=== PATIENT | male | born 1975 | race Caucasian/White ===

== ENCOUNTER → 2020-05-05 11:39 | Outpatient (CLI) | payer BC, SELFPAY ==
--- NOTE | ~2020-05-05 | XR_ITS ---
XR shoulder RT min 2V DATE: 05/05/2020 12:06 INDICATION: Adhesive capsulitis of right shoulder. Right shoulder pain. TECHNIQUE: 4 views COMPARISON: None FINDINGS: No fracture or dislocation, periosteal reaction or bone destruction or abnormal soft tissue calcification of the right shoulder. IMPRESSION: Negative Reviewed, dictated and finalized at location A. IMPRESSION: Negative
== END ==
PROVIDERS: PCP Internal Medicine; Visit Provider Internal Medicine
DX: M75.00 Adhesive capsulitis of unspecified shoulder (principal)
CPT/HCPCS: 73030

== ENCOUNTER 2020-06-03 15:30 | Outpatient (RCR) | payer BC, SELFPAY ==
--- NOTE | 2020-05-05 13:33 | PTOPEVAL ---
Thank you for referring Salbador Michelle to [facility] Please review, sign, date and return this plan of care MARVA. Patient evaluated on 05/05/20 in OP PT. Patient to be seen in OP PT 2x week for 3 weeks. I agree with and certify that the following plan of care is medically necessary. Referring Physician Date Admitting Provider: Attending Provider: Diogo Díaz MD Referring Provider: *PT Outpatient Evaluation Start: 05/05/20 12:31 Freq: Status: Active Protocol: Document 05/05/20 12:31 [facility] (Rec: 05/05/20 13:16 [facility] [id number]) Therapy Assessment Status Assessment Status Assessment Status Evaluation Outpatient Past Medical History Past Medical History No Past Medical/Surgical History Patient/Family Denies Significant Past Medical/ Surgical History Source of Past Medical History Patient Evaluation Information Problem Diagnosis R shoulder pain Onset November 2019 Additional Evaluation Detail Pt experiencing limitations with chores, washing his back/ getting to his wallet, participation in recreational activities, social and work activities, and sleep disruptions 2-3 x/night. Subjective Information Patient reports insidious Query Text:As Reported By Patient/ onset of R shoulder pain in Family November 2019, reports limitations in abduction, flexion, internal rotation. Reports he went to [facility] a few weeks ago. Got x-ray today, has not been read. Pt is an advanced practice nurse. Denies parasthesias. Was taking high dose NSAIDS however currently only taking vyvance and PRN ibruprofen to sleep. Diagnostic Tests X-Rays For This Problem Yes Pain Assessment Timing of Pain Assessment Timing of Pain Assessment Assessment Pain Scale Pain Scale Used Numeric (1 - 10) Self Report Pain Assessment Right Reported Pain Level 3 Pain Description Aching Pain Frequency Continuous Pain Aggravating Factors Exercise/Activity,Lifting Pain Relief Interventions Used By Exercise,Heat,Ice,Medication Patient Additional Pain Comments Increased pain with movement Pain Score Pain Score 3: Self Report Upper Extremity Range of Motion Scapular
--- NOTE | 2020-06-03 16:34 | PTOPEVAL ---
Thank you for referring Salbador Michelle to [facility].? The patient is scheduled to be seen for therapy? _ 1 x/week for 4 weeks. Please review, sign, date and return this plan of care MARVA. I agree with and certify that the following plan of care is medically necessary. Referring Physician Date Attending Provider: Diogo Díaz MD Physical Therapy Progress Note *PT Outpatient Evaluation Start: 05/05/20 12:31 Freq: Status: Active Protocol: Document 06/03/20 15:38 [facility] (Rec: 06/03/20 16:29 [facility] [id number]) Therapy Assessment Status Assessment Status Assessment Status Re-evaluation Outpatient Past Medical History Past Medical History No Past Medical/Surgical History Patient/Family Denies Significant Past Medical/ Surgical History Source of Past Medical History Patient Evaluation Information Problem Diagnosis R shoulder pain Onset November 2019 Subjective Information He purchases his own [employer] Query Text:As Reported By Patient/ from [employer] and is using every Family other day on his shoulder. States he does have bruises from the tool. He reports popping of shoulder with GH joint depression. He remains limited with his fitness routine with limiting any resistance exercise. Focusing on cardio conditioning. Reports continued limitations with internal rotation. Improved range with flex and abd. Denies parasthesias. Reports improved charline with sleeping with waking 1x/night. Pain Assessment Timing of Pain Assessment Timing of Pain Assessment Re-assessment Pain Scale Pain Scale Used Numeric (1 - 10) Self Report Pain Assessment Right Reported Pain Level 0 Greatest Pain Intensity 2 Pain Score Pain Score 0: Self Report Upper Extremity Range of Motion Scapular/ Shoulder Range of Motion Right Shoulder Flexion - Active 152 Shoulder Extension - Active 42 Shoulder Abduction - Active 140 Shoulder Medial Rotation - Active 50 Shoulder Lateral Rotation - Active 50 Scapular/Shoulder Range of Motion rotation measured with GH abd Comments 90 dg Left Shoulder Flexion - Active 168 Shoulder Extension - Active 50 Shoulder Abduction - Active 155 Shoulder Medial Rotation - Active 68 Shoulder Lateral Rotation - Active
--- NOTE | 2020-06-23 10:33 | PCPTNOTE ---
Admitting Provider: Attending Provider: Diogo Díaz MD Patient:Salbador Michelle Date of :1975 Discharge Note Patient has not returned for any further treatments since 06/03/2020, therefore he will be discharged at this time. Patient?s initial visit was on 05/05/2020 12:30 and he had a total of 5 visits. The goals have been partially met at this time. Thank you for referring this patient to [facility]. Please review, sign, date and return this discharge summary MARVA. I have been updated about the patient's current status and I agree with discharge from the above service at this time. Referring Physician Date
== END 2020-06-23 13:11 | disposition home or self-care (01) ==
LOC: ANHPT 15:30
PROVIDERS: PCP Internal Medicine; Visit Provider Internal Medicine
DX: M75.00 Adhesive capsulitis of unspecified shoulder (principal)
CPT/HCPCS: 97110; 97140; 97161

== ENCOUNTER 2021-02-19 10:01 | Emergency (ER) | payer BC, SELFPAY ==
[2021-02-19 10:08] VITALS: BP 130/84; PULSE 72; RESP 16; TEMP 36.3; O2SAT 100
--- NOTE | 2021-02-19 10:10 | ED.EYEPROB ---
HPI - Eye Problem General Chief complaint: Eye Problems Stated complaint: EYE SWELLING Time Seen by Provider: 02/19/21 10:10 Source: patient and RN notes reviewed History of Present Illness HPI Narrative: Patient is a 46-year-old male who presents the urgent care with complaints of swelling and redness surrounding the right eye. Patient states it started 2 days ago after he attempted to pop a pimple on the nasal bridge. Patient states that he has been putting Neosporin on the pimple. Denies of any fevers, nausea, vomiting. Denies of any known injury to the eye. No other acute complaints. No acute distress noted. Patient aware of the plan of care. Some parts of this dictation were generated by voice recognition software and may contain typographical and/or grammatical inaccuracies. Related Data Home Medications Medication Instructions Recorded Confirmed cholecalciferol (vitamin D3) 50 2,000 unit PO DAILY 08/14/19 10/20/20 mcg (2,000 unit) tablet multivitamin 1 tablet PO DAILY 08/14/19 10/20/20 lisdexamfetamine [Vyvanse] mg 02/19/21 Allergies Allergy/AdvReac Type Severity Reaction Status Date / Time Sulfa (Sulfonamide Allergy Unknown Hives Verified 10/20/20 07:57 Antibiotics) Review of Systems Review of Systems: Narrative: CONSTITUTIONAL: Denies fever, chills, or sweats. EYES: Denies visual changes. Reports of swelling and redness surrounding the right eye ENT: Denies rhinorrhea, congestion, sore throat, or otalgia. CARDIOVASCULAR: Denies chest pain, palpitations, or edema. RESPIRATORY: Denies cough or dyspnea. GASTROINTESTINAL: Denies abdominal pain, nausea, vomiting, or diarrhea. GENITOURINARY: Denies dysuria or hematuria. SKIN: Denies rash or itching. MUSCULOSKELETAL: Denies back pain, joint pain, or myalgia. NEUROLOGIC: Denies headache, numbness, or weakness. All other systems reviewed are negative, except as documented in HPI. [facility] Family History Family History Mother Patient's mother is in good health Father Patient's father is in good health Sibling Patient's sister is in good health Social History Social History Smoking status: Never smoker Alcohol intake: current Comments At the time of my signature, I reviewed and agree with the nursing past medical, surgical, social, and family history. There is no relevant family history pertinent to the patient complaint. Exam Narrative: Exam Narrative: GENERAL: This is a well-nourished, well-developed patient, in no apparent distress. HEAD: normocephalic, atraumatic. EYES: PERRL. Sclera clear/white. Vision is grossly intact. Mild erythemic/edematous periorbital cellulitis to the right eye. EARS: External ears normal NOSE: External nose normal with no obvious nasal discharge, nares without redness, no rhinorrhea. THROAT: Mucous membranes moist NECK: Neck supple CARDIOVASCULAR: Regular rate and rhythm without murmurs, gallops, or rubs. RESPIRATORY: Clear to auscultation. Breath sounds equal bilaterally. No wheezes, rales, or rhonchi. SKIN: Yellow crusted 0.25 cm area of impetigo to the right nasal bridge. Warm, intact with no suspicious lesions or rash, good texture and turgor. NEURO: awake, alert, and oriented to person, place and time. There were no obvious focal neurologic abnormalities. EXTREMITIES: No clubbing, cyanosis, or edema. Course Vital Signs Vital signs: Vital Signs Temperature 97.4 F L 02/19/21 10:08 Pulse Rate 72 02/19/21 10:08 Respiratory Rate 16 02/19/21 10:08 Blood Pressure 130/84 02/19/21 10:08 Pulse Oximetry 100 02/19/21 10:08 Temperature 97.4 F L 02/19/21 10:08 Pulse Rate 72 02/19/21 10:08 Respiratory Rate 16 02/19/21 10:08 Blood Pressure 130/84 02/19/21 10:08 Pulse Oximetry 100 02/19/21 10:08 Reviewed MDM - Eye Problem MDM Narrative Medical decision making narrative: Advise
== END 2021-02-19 10:21 | disposition home or self-care (01) ==
PROVIDERS: Emergency Provider Nurse Practitioner Family; PCP Internal Medicine
DX: L03.213 Periorbital cellulitis (principal)
CPT/HCPCS: 99213; G0463